=== PATIENT | female | born 1960 | race Caucasian/White ===

== ENCOUNTER 2020-08-11 13:08 | Inpatient (IN) ==
[2020-08-11] MEDS ORDERED: Naloxone 0.4 MG/ML INJ IVP PRN (19:55)
[2020-08-11 20:39] LABS: Basophils # 0.1 K/mcL (0.0-0.2); Basophils % 0.3 %; Eosinophils # 0.1 K/mcL (0.0-0.6); Eosinophils % 0.6 %; Hematocrit 21.5 % (35.3-44.9); Hemoglobin 7.3 g/dL (11.5-15.4); Immature Granulocytes % 2.8 % (0-4); Lymphocytes % 10.3 %; Mean Corpuscular Hemoglobin 32.4 pg (28.0-33.3); Mean Corpuscular Volume 95.6 fL (83.0-100.0); Monocytes # 3.8 K/mcL (0.0-1.3); Monocytes % 18.1 %; Neutrophils # 14.1 K/mcL (1.6-8.9); Nucleated Red Blood Cells 0.2 /100 WBC (0); Platelet Count 188 K/mcL (140-400); Red Blood Count 2.25 M/mcL (3.82-4.97); Red Cell Distribution Width 19.7 % (11.5-14.5); Segmented Neutrophils % 67.9 %; White Blood Count 20.8 K/mcL (4.3-11.1)
[2020-08-11 20:40] LABS: Lymphocytes # 2.1 K/mcL (0.6-4.6)
[2020-08-11 20:46] LABS: INR 1.6; Prothrombin Time 18.4 Seconds (9.4-12.1)
[2020-08-11 20:49] LABS: Activated Partial Thrombo Time 28.2 Seconds (26.0-36.0)
[2020-08-11 20:59] LABS: Magnesium 1.5 mg/dL (1.6-2.6); Phosphorous 2.4 mg/dL (2.7-4.5)
[2020-08-11 21:16] LABS: Alanine Aminotransferase 32 Units/L (7-52); Albumin 2.6 g/dL (3.5-5.7); Albumin/Globulin Ratio 1.7 (1.1-2.2); Alkaline Phosphatase 100 Units/L (34-104); Aspartate Amino Transferase 74 Units/L (13-39); BUN/Creatinine Ratio 44 (6-26); Bilirubin,Direct 2.7 mg/dL (0.0-0.2); Bilirubin,Indirect 2.5 mg/dL (0.0-1.0); Bilirubin,Total 5.2 mg/dL (0.3-1.0); Blood Urea Nitrogen 46 mg/dL (6-20); Calcium 7.3 mg/dL (8.6-10.3); Carbon Dioxide 26 mEq/L (23-29); Chloride 104 mEq/L (98-107); Globulin 1.5 g/dL (2.4-3.5); Glucose 136 mg/dL (70-105); Osmolality,Calculated 302 (280-300); Potassium 3.3 mEq/L (3.5-5.1); Sodium 139 mEq/L (136-145); Total Protein 4.1 g/dL (6.4-8.9); eGFR For African Americans > 60 (> 60); eGFR For Non-African Americans 54 (> 60)
[2020-08-11] MEDS ORDERED: Potassium Phosphate 44 MEQ in 0.9 % Sodium Chloride 250 ML IVPB ONE (21:29)
[2020-08-11 21:30] LABS: Ethanol < 10 mg/dL (Less than 10)
[2020-08-11] MEDS ORDERED: 0.9 % Sodium Chloride 1,000 ML IVC SCH (21:30)
[2020-08-11] MEDS: Calcium Gluconate 1gm/50mL 1 GM/50 ML BAG IVPB SCH (22:32)
[2020-08-11] MEDS ORDERED: cefTRIAXone 1,000 MG in Water for inj. (sterile) 10 ML IVP SCH (23:00)
[2020-08-11] MEDS ORDERED: *HR* LORazepam 2 MG/ML VIAL IVP PRN ×3 (23:12)
[2020-08-11 23:14] LABS: Bacteria,Urine Few per hpf (None-Few); Bilirubin,Urine Negative (Negative); Blood,Urine Small (Negative); Clarity,Urine Clear (Clear); Color,Urine Dark-Yellow (Yellow); Glucose,Urine (UA) Normal (Normal); Ketones,Urine Negative (Negative); Leukocyte Esterase,Urine Large (Negative); Mucus,Urine Few per lpf (None-Few); Nitrite,Urine Negative (Negative); Protein,Urine Negative (Neg-Trace); Squamous Epithelial Cell,Urine Few per hpf (None-Few); WBC,Urine 15-30 per hpf (0-3)
[2020-08-11 23:23] LABS: Amphetamine Screen,Urine Negative ng/mL (Cutoff=1000); Barbiturate Screen,Urine Negative ng/mL (Cutoff=200); Benzodiazepines Screen,Urine Negative ng/mL (Cutoff=200); Cannabinoid Screen,Urine Negative ng/mL (Cutoff = 50); Cocaine Screen,Urine Negative ng/mL (Cutoff= 300); Opiate Screen,Urine Negative ng/mL (Cutoff=300); Phencyclidine Screen,Urine Negative ng/mL (Cutoff=25)
[2020-08-11 23:26] LABS: Carcinoembryonic Antigen 6.2 ng/mL (Less than 5.0); Lactate Dehydrogenase 226 Units/L (140-271)
[2020-08-11] MEDS ORDERED: 0.9 % Sodium Chloride 1,000 ML IVC ONE (23:51)
[2020-08-12] MEDS: Thiamine (B-1) 100 MG, Folic Acid 1 MG, MVI, adult with vitamin K 10 ML in 0.9 % Sodi... IVPB SCH ×2 (00:08→17:54)
[2020-08-12] MEDS: Lactulose Oral Soln 20 GM/30 ML UDC PO SCH ×4 (00:09→20:06)
[2020-08-12] MEDS: Calcium Gluconate 1gm/50mL 1 GM/50 ML BAG IVPB SCH ×3 (00:28→18:59)
[2020-08-12] MEDS ORDERED: *HR* Metoprolol 5 MG/5 ML VIAL IVP ONE ×2 (02:22→03:17)
[2020-08-12 04:08] LABS: Basophils % 0.1 %; Mean Platelet Volume 10.4 fL (9.4-12.4)
[2020-08-12 04:09] LABS: Eosinophils # 0.1 K/mcL (0.0-0.6); Eosinophils % 0.3 %; Hematocrit 17.3 % (35.3-44.9); Immature Granulocytes % 3.7 % (0-4); Lymphocytes # 2.3 K/mcL (0.6-4.6); Lymphocytes % 9.5 %; Mean Corpuscular HGB Conc 32.9 g/dL (31.6-35.5); Mean Corpuscular Hemoglobin 33.1 pg (28.0-33.3); Mean Corpuscular Volume 100.6 fL (83.0-100.0); Monocytes % 19.5 %; Nucleated Red Blood Cells 0.6 /100 WBC (0); Platelet Count 178 K/mcL (140-400); Red Blood Count 1.72 M/mcL (3.82-4.97); Red Cell Distribution Width 20.9 % (11.5-14.5); Segmented Neutrophils % 66.9 %; White Blood Count 23.8 K/mcL (4.3-11.1)
[2020-08-12 04:27] LABS: Magnesium 3.3 mg/dL (1.6-2.6)
[2020-08-12 04:29] LABS: Calcium 7.8 mg/dL (8.6-10.3); Potassium 4.2 mEq/L (3.5-5.1)
[2020-08-12] MEDS ORDERED: Isovue-370 500 ML BOTTLE IVP ONE (04:46)
[2020-08-12 04:56] LABS: Monocytes # 4.6 K/mcL (0.0-1.3)
[2020-08-12 04:57] LABS: Neutrophils # 15.9 K/mcL (1.6-8.9)
[2020-08-12 04:58] LABS: Hemoglobin 5.7 g/dL (11.5-15.4)
[2020-08-12] MEDS ORDERED: 0.9 % Sodium Chloride 250 ML IVC SCH (05:00)
[2020-08-12] MEDS ORDERED: Octreotide 50 MCG/ML INJ IVP ONE (05:03)
[2020-08-12] MEDS ORDERED: Pantoprazole 40 MG VIAL IVP ONE (05:04)
[2020-08-12 05:16] LABS: Albumin 2.2 g/dL (3.5-5.7); Albumin/Globulin Ratio 1.7 (1.1-2.2); Bilirubin,Direct 2.4 mg/dL (0.0-0.2); Bilirubin,Indirect 1.8 mg/dL (0.0-1.0); Bilirubin,Total 4.2 mg/dL (0.3-1.0); Globulin 1.3 g/dL (2.4-3.5); Total Protein 3.5 g/dL (6.4-8.9); Troponin I 0.04 ng/mL (< 0.04)
[2020-08-12 05:21] LABS: Microcytosis Present (Not Present)
[2020-08-12 05:22] LABS: Anisocytosis 3+ (Not Present); Platelet Estimate Normal (Normal); Polychromasia 1+ (Not Present)
[2020-08-12 05:23] LABS: Acanthocytes 1+ (Not Present)
[2020-08-12] MEDS ORDERED: Octreotide 400 MCG in 0.9 % Sodium Chloride 100 ML IVC SCH (05:30)
[2020-08-12] MEDS ORDERED: *HR* Dextrose 50 % in Water (Vial) 50 ML VIAL ONE (05:37)
[2020-08-12 05:40] LABS: ABG Base Excess -10 mEq/L (-2 to 3); ABG HCO3 14 mEq/L (21-27); ABG Oxygen Saturation 97 % (95-98); ABG PCO2 23 mmHg (35-45); ABG PH 7.41 pH Units (7.32-7.45); ABG PO2 84 mmHg (85-104); ABG TCO2 15 mEq/L (20-26)
[2020-08-12] MEDS ORDERED: Ringers Solution, Lactated 1,000 ML ONE (05:44)
[2020-08-12 05:45] LABS: Folate > 22.3 ng/mL (3.0-16.0); Vitamin B12 1279 pg/mL (250-1100)
[2020-08-12] MEDS ORDERED: Ringers Solution, Lactated 1,000 ML IVC ONE (05:46)
[2020-08-12] MEDS: Pantoprazole 40 MG in 0.9 % Sodium Chloride Mini Bag 100 ML IVC SCH ×4 (05:53→20:07)
[2020-08-12 05:55] LABS: INR 1.9; Prothrombin Time 21.1 Seconds (9.4-12.1)
[2020-08-12] MEDS: Ringers Solution, Lactated 1,000 ML IVC ONE ×2 (05:56→08:00)
[2020-08-12] MEDS: Piperacillin/Tazobactam 3.375 GM in 0.9 % Sodium Chloride Mini Bag 100 ML IVPB SCH ×3 (06:00→22:34)
[2020-08-12] MEDS ORDERED: 0.9 % Sodium Chloride 250 ML ONE ×2 (06:33→09:15)
[2020-08-12] MEDS ORDERED: Artificial Tears SOLN 15 ML BOTTLE BOTH EYES PRN (07:48)
[2020-08-12] MEDS ORDERED: Naloxone 0.4 MG/ML INJ IVP PRN (07:48)
[2020-08-12] MEDS ORDERED: Metoclopramide 10 MG/2 ML VIAL IVP STA (08:35)
[2020-08-12] MEDS: Norepinephrine 4 MG/254 ML IV.SOLN IVC SCH ×2 (09:15→14:44)
[2020-08-12] MEDS: FentaNYL (PF) 1,000 MCG/100 ML IV.SOLN IVC SCH ×2 (09:20→18:53)
[2020-08-12] MEDS ORDERED: *HR* EPINEPHrine 1 MG/10 ML SYRINGE INTRATRACH PRN (09:30)
[2020-08-12] MEDS: Chlorhexidine Rinse 15 ML MOUTHWASH MM SCH ×2 (09:53→20:06)
[2020-08-12] MEDS: Artificial Tears SOLN 15 ML BOTTLE BOTH EYES SCH ×5 (09:54→23:56)
[2020-08-12 10:07] LABS: ABG Base Excess -14 mEq/L (-2 to 3); ABG HCO3 10 mEq/L (21-27); ABG Oxygen Saturation 100 % (95-98); ABG PCO2 18 mmHg (35-45); ABG PH 7.35 pH Units (7.32-7.45); ABG PO2 238 mmHg (85-104); ABG TCO2 11 mEq/L (20-26); Blood Gas Modality ASSIST CONTROL; Blood Gas VT 450 cc
[2020-08-12 12:36] LABS: Hematocrit 28.4 % (35.3-44.9); Hemoglobin 9.4 g/dL (11.5-15.4); Mean Corpuscular HGB Conc 33.1 g/dL (31.6-35.5); Mean Corpuscular Volume 96.6 fL (83.0-100.0); Mean Platelet Volume 10.5 fL (9.4-12.4); Nucleated Red Blood Cells 0.7 /100 WBC (0); Platelet Count 136 K/mcL (140-400); Red Blood Count 2.94 M/mcL (3.82-4.97); Red Cell Distribution Width 16.8 % (11.5-14.5)
[2020-08-12 12:47] LABS: White Blood Count 30.9 K/mcL (4.3-11.1)
[2020-08-12 12:51] LABS: Calcium 7.3 mg/dL (8.6-10.3); Potassium 4.5 mEq/L (3.5-5.1)
[2020-08-12 13:27] LABS: Lymphocytes # 3.1 K/mcL (0.6-4.6); Monocytes # 3.4 K/mcL (0.0-1.3); Neutrophils # 23.5 K/mcL (1.6-8.9)
[2020-08-12 13:28] LABS: Anisocytosis 1+ (Not Present); Platelet Estimate Slight Decrease (Normal)
[2020-08-12 13:30] LABS: Polychromasia 1+ (Not Present)
[2020-08-12 14:34] LABS: Adenovirus Not Detected (Not Detect); Bordetella Pertussis Not Detected (Not Detect); Coronavirus 229E Not Detected (Not Detect); Coronavirus HKU1 Not Detected (Not Detect); Coronavirus NL63 Not Detected (Not Detect); Coronavirus OC43 Not Detected (Not Detect); Human Metapneumovirus Not Detected (Not Detect); Human Rhinovirus/Enterovirus Not Detected (Not Detect); Influenza A Subtype 2009 H1 Not Detected (Not Detect); Influenza B Not Detected (Not Detect); Parainfluenza Virus 1 Not Detected (Not Detect); Parainfluenza Virus 2 Not Detected (Not Detect); Parainfluenza Virus 3 Not Detected (Not Detect); Parainfluenza Virus 4 Not Detected (Not Detect); Respiratory Syncytial Virus Not Detected (Not Detect); SARS-CoV-2 Not Detected (Not Detect)
[2020-08-12 14:35] LABS: Chlamydophila pneumoniae Not Detected (Not Detect); Mycoplasma pneumoniae Not Detected (Not Detect)
[2020-08-12] MEDS ORDERED: *HR* Midazolam HCl 5 MG/5 ML VIAL IVP ONE (16:41)
[2020-08-12] MEDS ORDERED: *HR* Propofol 200 MG/20 ML VIAL IVP ONE (16:41)
[2020-08-12] MEDS: Vasopressin 40 UNIT in D5% in Water 100 ML IVC SCH (16:54)
[2020-08-12] MEDS ORDERED: 0.9 % Sodium Chloride 1,000 ML ONE (16:55)
[2020-08-12] MEDS ORDERED: Albumin 25% 25gram/100mL 25 GM/100 ML IV.SOLN IVPB ONE (17:46)
[2020-08-12] MEDS ORDERED: Albumin 25% 25gram/100mL 25 GM/100 ML IV.SOLN ONE (17:48)
[2020-08-12] MEDS: SODIUM CHLORIDE IVC SCH ×2 (17:53→22:37)
[2020-08-12] MEDS: NOREPINEPHRINE IVC SCH ×2 (17:53→22:37)
[2020-08-12] MEDS ORDERED: Phenylephrine 10 MG in 0.9 % Sodium Chloride 250 ML IVC SCH (18:00)
[2020-08-12 18:08] LABS: Basophils # 0.1 K/mcL (0.0-0.2); Basophils % 0.2 %; Eosinophils # 0.2 K/mcL (0.0-0.6); Eosinophils % 0.4 %; Hematocrit 32.5 % (35.3-44.9); Hemoglobin 10.7 g/dL (11.5-15.4); Immature Granulocytes % 8.8 % (0-4); Lymphocytes # 2.8 K/mcL (0.6-4.6); Lymphocytes % 6.5 %; Mean Corpuscular HGB Conc 32.9 g/dL (31.6-35.5); Mean Corpuscular Hemoglobin 32.2 pg (28.0-33.3); Mean Corpuscular Volume 97.9 fL (83.0-100.0); Mean Platelet Volume 10.9 fL (9.4-12.4); Nucleated Red Blood Cells 2.1 /100 WBC (0); Platelet Count 146 K/mcL (140-400); Red Blood Count 3.32 M/mcL (3.82-4.97); Segmented Neutrophils % 70.1 %
[2020-08-12 18:09] LABS: VBG Ionized Calcium 0.85 mmol/L (1.15-1.35)
[2020-08-12 18:13] LABS: Neutrophils # 29.9 K/mcL (1.6-8.9); White Blood Count 42.6 K/mcL (4.3-11.1)
[2020-08-12] MEDS ORDERED: Calcium Gluconate 1,000 MG/10 ML VIAL ONE (18:21)
[2020-08-12 18:24] LABS: Platelet Estimate Slight Decrease (Normal)
[2020-08-12 18:25] LABS: Anisocytosis 1+ (Not Present); Macrocytosis Present (Not Present); Polychromasia 1+ (Not Present)
[2020-08-12 18:26] LABS: Burr Cells 1+ (Not Present); Poikilocytosis 1+ (Not Present)
[2020-08-12 18:30] LABS: Calcium 7.3 mg/dL (8.6-10.3); Phosphorous 9.4 mg/dL (2.7-4.5); Potassium 4.8 mEq/L (3.5-5.1)
[2020-08-12 18:56] LABS: ABG Base Excess -12 mEq/L (-2 to 3); ABG HCO3 14 mEq/L (21-27); ABG Oxygen Saturation 94 % (95-98); ABG PCO2 30 mmHg (35-45); ABG PH 7.28 pH Units (7.32-7.45); ABG PO2 80 mmHg (85-104); ABG TCO2 15 mEq/L (20-26); Blood Gas Modality ASSIST CONTROL; Blood Gas VT 450 cc
[2020-08-12] MEDS ORDERED: *HR* Dextrose 50 % in Water (Vial) 50 ML VIAL IVP ONE (19:05)
[2020-08-12] MEDS: Sodium Bicarbonate 150 MEQ in D5% in Water 1,000 ML IVC SCH (19:10)
[2020-08-12] MEDS: Phenylephrine 50 MG in 0.9 % Sodium Chloride 250 ML IVC SCH (20:30)
[2020-08-12] MEDS ORDERED: Ipratropium/Albuterol Neb 3 ML IH PRN (22:03)
[2020-08-13 00:05] LABS: Hematocrit 23.3 % (35.3-44.9)
[2020-08-13 00:06] LABS: Hemoglobin 7.6 g/dL (11.5-15.4)
[2020-08-13] MEDS: Pantoprazole 40 MG in 0.9 % Sodium Chloride Mini Bag 100 ML IVC SCH ×2 (00:59→06:09)
[2020-08-13 03:12] LABS: Sodium, Urine 11.6 mEq/L
[2020-08-13] MEDS: Artificial Tears SOLN 15 ML BOTTLE BOTH EYES SCH ×2 (03:27→07:15)
[2020-08-13] MEDS: SODIUM CHLORIDE IVC SCH (03:27)
[2020-08-13] MEDS: NOREPINEPHRINE IVC SCH (03:27)
[2020-08-13] MEDS: Sodium Bicarbonate 150 MEQ in D5% in Water 1,000 ML IVC SCH (03:28)
[2020-08-13 03:41] LABS: Hemoglobin 7.3 g/dL (11.5-15.4)
[2020-08-13 03:42] LABS: VBG Ionized Calcium 0.73 mmol/L (1.15-1.35)
[2020-08-13 03:42] LABS: Hematocrit 23.2 % (35.3-44.9); Mean Corpuscular HGB Conc 31.5 g/dL (31.6-35.5); Mean Corpuscular Hemoglobin 32.6 pg (28.0-33.3); Mean Corpuscular Volume 103.6 fL (83.0-100.0); Mean Platelet Volume 11.3 fL (9.4-12.4); Nucleated Red Blood Cells 4.2 /100 WBC (0); Platelet Count 110 K/mcL (140-400); Red Blood Count 2.24 M/mcL (3.82-4.97); Red Cell Distribution Width 20.1 % (11.5-14.5)
[2020-08-13 03:52] LABS: INR 6.3; Prothrombin Time 68.9 Seconds (9.4-12.1); White Blood Count 36.3 K/mcL (4.3-11.1)
[2020-08-13] MEDS ORDERED: Calcium Chloride 1,000 MG in 0.9 % Sodium Chloride 100 ML IVPB ONE (03:59)
[2020-08-13 04:04] LABS: Anisocytosis 2+ (Not Present); Burr Cells 1+ (Not Present); Lymphocytes # 5.8 K/mcL (0.6-4.6); Macrocytosis Present (Not Present); Microcytosis Present (Not Present); Monocytes # 3.6 K/mcL (0.0-1.3); Neutrophils # 26.9 K/mcL (1.6-8.9); Platelet Estimate Slight Decrease (Normal); Poikilocytosis 1+ (Not Present); Polychromasia 1+ (Not Present)
[2020-08-13 04:22] LABS: Alanine Aminotransferase 2030 Units/L (7-52); Albumin 2.2 g/dL (3.5-5.7); Albumin/Globulin Ratio 2.8 (1.1-2.2); Alkaline Phosphatase 169 Units/L (34-104); Aspartate Amino Transferase > 3000 Units/L (13-39); BUN/Creatinine Ratio 23 (6-26); Bilirubin,Total 4.1 mg/dL (0.3-1.0); Blood Urea Nitrogen 51 mg/dL (6-20); Calcium 6.8 mg/dL (8.6-10.3); Carbon Dioxide 10 mEq/L (23-29); Chloride 106 mEq/L (98-107); Globulin 0.8 g/dL (2.4-3.5); Glucose 154 mg/dL (70-105); Magnesium 2.8 mg/dL (1.6-2.6); Osmolality,Calculated 321 (280-300); Phosphorous 11.3 mg/dL (2.7-4.5); Potassium 4.9 mEq/L (3.5-5.1); Sodium 147 mEq/L (136-145); eGFR For African Americans 28 (> 60); eGFR For Non-African Americans 23 (> 60)
[2020-08-13 04:28] LABS: Alanine Aminotransferase 2027 Units/L (7-52); Albumin 2.1 g/dL (3.5-5.7); Albumin/Globulin Ratio 2.3 (1.1-2.2); Alkaline Phosphatase 164 Units/L (34-104); Aspartate Amino Transferase > 3000 Units/L (13-39); Bilirubin,Direct 2.6 mg/dL (0.0-0.2); Bilirubin,Indirect 1.5 mg/dL (0.0-1.0); Bilirubin,Total 4.1 mg/dL (0.3-1.0); Globulin 0.9 g/dL (2.4-3.5)
[2020-08-13 05:17] LABS: ABG Base Excess -21 mEq/L (-2 to 3); ABG HCO3 9 mEq/L (21-27); ABG Oxygen Saturation 81 % (95-98); ABG PCO2 35 mmHg (35-45); ABG PH 7.01 pH Units (7.32-7.45); ABG PO2 66 mmHg (85-104); ABG TCO2 10 mEq/L (20-26)
[2020-08-13] MEDS: Vasopressin 40 UNIT in D5% in Water 100 ML IVC SCH (06:07)
[2020-08-13] MEDS: Phenylephrine 50 MG in 0.9 % Sodium Chloride 250 ML IVC SCH (06:09)
[2020-08-13 07:13] VITALS: BP 66/33
[2020-08-13] MEDS: Chlorhexidine Rinse 15 ML MOUTHWASH MM SCH (07:19)
[2020-08-13] MEDS: Piperacillin/Tazobactam 3.375 GM in 0.9 % Sodium Chloride Mini Bag 100 ML IVPB SCH (07:19)
[2020-08-13] MEDS: Lactulose Oral Soln 20 GM/30 ML UDC PO SCH (07:20)
[2020-08-13 13:32] LABS: AFP Tumor Marker Non-Pregnant 2 ng/mL (0-9)
[2020-08-14 11:25] LABS: Cancer Antigen-GI (CA 19-9) 77 U/mL (0-37)
[2020-08-15] MEDS ORDERED: Pantoprazole 40 MG VIAL IVP SCH (09:00)
== END 2020-08-13 09:00 | disposition expired | DRG 871 ==
LOC: 2ANU → ICNU 08-12 05:42
PROVIDERS: ADMIT Internal Medicine; ATTEND Internal Medicine